=== PATIENT | female | born 1955 | race Caucasian/White ===

== ENCOUNTER → 2018-09-07 | Outpatient (CLI) | payer OTHER | LOC: RAD 11:23 | DX: I51.7 Cardiomegaly (principal); M79.89 Other specified soft tissue disorders; I70.0 Atherosclerosis of aorta; R60.9 Edema, unspecified ==

== ENCOUNTER → 2018-09-18 | Outpatient (CLI) | payer OTHER ==
[~2018-09-18] VITALS: Ht 167.6 cm; Wt 106.6 kg
[~2018-09-18] MED LIST: AMLODIPINE BESY10 MG PO; AMOX TR-K CLV1 EAC3 PO; LISINOPRIL-HCT1 EAC1 PO; ZANTAC 150MG T150 MG PO
--- NOTE | 2018-09-19 16:06 | PATH ---
[facility] [address] PATHOLOGY RPT PROCEDURE Name: NANDA BLACK Room #: REG [facility] MDalia.#: [id number] ������������������ Admission: 09/18/18 ������������������ Date of : 55 Discharge: Report #: [id number] Path Case #: [id number] [facility] Accession Number: [id number] . 01 Material submitted: . POLYP AT DESCENDING COLON . 01 Clinical history: . Screening Colon polyp . 02 Diagnosis: Polyp, at descending colon, endoscopic biopsy: - Tubular adenoma. - Negative for high-grade dysplasia. (IUV:kurt; 09/19/2018) QMS/09/19/2018 . 02 Electronically signed: . Abigail Alfonso MD, Pathologist NPI- [id number] . 01 Gross description: . The specimen is received in formalin, labeled "Abby, Nanda, polyp at descending colon" and consists of a fragment of pink-portillo tissue measuring 0.5 x 0.4 x 0.2 cm. It is inked, bisected, and entirely submitted in A1. (SDY; 09/18/2018) SYU/SYU . 02 Pathologist provided ICD-10: D12.4 . 02 CPT . 242510 Specimen Comment: A courtesy copy of this report has been sent to Specimen Comment: [phone], . Specimen Comment: Report sent to / DR JAQUEZ Performed at: [address], [place] [id number] MD Ramsey Chandler MD Phone: [phone] Performed at: [address] [id number] MD Abigail Alfonso MD Phone: [phone]
== END | disposition home or self-care (01) ==
LOC: GI 09:30
DX: Z12.11 Encounter for screening for malignant neoplasm of colon (principal); D12.4 Benign neoplasm of descending colon; K57.30 Diverticulosis of large intestine without perforation or abscess without bleeding; K64.8 Other hemorrhoids; I10 Essential (primary) hypertension; E66.09 Other obesity due to excess calories; Z87.891 Personal history of nicotine dependence; Z85.828 Personal history of other malignant neoplasm of skin; Z79.899 Other long term (current) drug therapy; Z88.6 Allergy status to analgesic agent; Z90.49 Acquired absence of other specified parts of digestive tract; Z90.710 Acquired absence of both cervix and uterus; Z98.890 Other specified postprocedural states; Z68.37 Body mass index [BMI] 37.0-37.9, adult
CPT/HCPCS: 62110; 62900

== ENCOUNTER → 2018-09-22 | Outpatient (CLI) | payer OTHER | LOC: RAD 13:56 | DX: J98.4 Other disorders of lung (principal) ==

== ENCOUNTER 2018-10-15 14:43 | Inpatient (IN) | payer OTHER ==
[2018-10-15] VITALS (7 sets, daily range): BP systolic 97–117; BP diastolic 49–78
[~2018-10-15] VITALS: Ht 167.6 cm; Wt 100.7 kg
[2018-10-15 15:21] LABS: HEMATOCRIT 31.8 % (37.0-47.0); HEMOGLOBIN 10.4 gm/dL (12.0-15.0); MCH 27.1 pg (26.0-34.0); MCHC 32.8 g/dL (28.0-37.0); MCV 82.8 fL (80.0-100.0); RBC 3.84 mil/uL (4.20-5.00); RDW 19.2 % (10.5-14.5); WBC 11.2 thou/uL (4.0-11.0)
[2018-10-15 15:30] LABS: CALCIUM 9.3 mg/dL (8.5-10.1); CREATININE 1.8 mg/dL (0.6-1.0); POTASSIUM 4.9 mmol/L (3.5-5.1)
[2018-10-15 15:40] LABS: ALBUMIN 3.6 g/dL (3.4-5.0); TOTAL BILIRUBIN 0.3 mg/dL (<0.1-1.0); TOTAL PROTEIN 6.2 g/dL (6.4-8.2); TROPONIN-I 0.52 ng/mL (<0.06)
[2018-10-15] MEDS ORDERED: UNICOMPLEX M TA1 TA1 PO (16:08)
[2018-10-15 16:40] LABS: APTT 31.2 Seconds (24.5-32.8); INR 1.1; PROTIME 11.4 Seconds (9.3-11.4)
[2018-10-15] MEDS ORDERED: NORVASC10 MG PO (17:46)
--- NOTE | 2018-10-15 18:31 | NUR ---
ADMITTED PATIENT TO ROOM AT THIS TIME. SHE IS ALERT ORIENTED X4. SHE IS HERE FOR CHEST PAIN. SHE DENIES PAIN AT THIS TIME. STATES PAIN INCREASES WHEN SHE WALKS OR DOES ANY ACTIVITY. WILL SPACE OUT ACTIVITY. HERE WITH HERE. ORIENTED TO ROOM, ROUTINE AND AND MEAL TIMES.
[2018-10-16] VITALS: BP 120/71
[2018-10-16 00:46] VITALS: BP 98/61
[2018-10-16 02:53] LABS: ALBUMIN 3.2 g/dL (3.4-5.0); CALCIUM 8.7 mg/dL (8.5-10.1); CREATININE 1.3 mg/dL (0.6-1.0); PHOSPHORUS 3.4 mg/dL (2.5-4.9); POTASSIUM 4.3 mmol/L (3.5-5.1)
[2018-10-16 03:00] LABS: TROPONIN-I 0.68 ng/mL (<0.06)
--- NOTE | 2018-10-16 04:26 | NUR ---
ASSUMED CARE 1899. VSS. ASSESSMENT CHARTED. AT BEDSIDE, A&OX4. X1 COMMOD SOA WHEN WALKING STEADY ON FEET, RA O2 STATS WNL. GTTS HEPARIN PER EMAR PROTOCOL FOLLOWED SEE FLOW SHEET. PT C/O L CP CONTROLED WITH NITRO SL PER EMAR SEE DOCUMENTATION, SBP DROPS TO 90'S AYSYMPTOMATIC MAP WNL. STEEL BUFFER NOTIFIED TO UPDATE ON PT, ORDERS GIVEN. PLAN FOR APTT REDRAW AT 0930. CARDIO AWARE SEE NOTES. NPO. WILL CONTINUE TO MONITOR AND WITH POC.
[2018-10-16 04:55] VITALS: BP 100/51
--- NOTE | 2018-10-16 08:55 | EKG ---
[place] [address] [address] [facility] [place] [address] ELECTROCARDIOGRAM REPORT Name: NANDA BLACK Room #: 211-P ADM IN M.R.#: [id number] ������������������ Admission: 10/15/18 ������������������ Attend Phys: Miguel Ojeda Discharge: ������������������ Date of : 55 Report #: [id number] ����������������������������������������������������������������� [id number] THIS REPORT FOR: //name// [facility] ED Test Date: 2018-10-15 Test Time: 14:45:16 Pat Name: NANDA BLACK Department: Room: 211 Gender: F Operator [employer]: BRADY : 1955 Requested By: Jeanne Díaz Order Number: [id number] MD: Blu Bagley Measurements Intervals [place] Rate: 86 P: 116 ND: 225 QRS: 11 QRSD: 135 T: 186 QT: 405 QTc: 485 Interpretive Statements Sinus rhythm Prolonged ND interval Left bundle branch block No previous ECG available for comparison Electronically Signed On 10-16-2018 8:55:05 CDT by Blu Bagley [email or web address] ��������������������������������������������� <ELECTRONICALLY SIGNED> ���������������������������������������� By: Blu Bagley MD, [facility] ��������������������������������������������� 10/16/18 0855 1445 1445 Blu Bagley MD, [facility]ACC /EPI
[2018-10-16 09:47] LABS: CHOLESTEROL 195 mg/dL (<200); HDL CHOLESTEROL 25 mg/dL (>40); LDL CHOLESTEROL 140 mg/dL (<100); TC:HDL 7.8 Ratio (Not establshd); TRIGLYCERIDE 150 mg/dL (<150); TROPONIN-I 0.43 ng/mL (<0.06); VLDL 30 mg/dL (<40)
[2018-10-16 12:24] VITALS: BP 111/56
--- NOTE | 2018-10-16 12:38 | 2DMMODE ---
[facility] [address] [place] [address] 2 D/M-MODE ECHOCARDIOGRAM Name: NANDA BLACK Room #: 211-P ADM IN M.R.#: [id number] ������������� Admission: 10/15/18 ������������� Attend Phys: Miguel Tomlinson Discharge: ��� ������������� ��� Date of : 55 Date of Service: 10/16/18 1237 �� Report #: [id number] �������� ��������������������������������������������[id number] THIS REPORT FOR: //name// APPROVED REPORT Study performed: 10/16/2018 11:46:45 EXAM: Comprehensive 2D, Doppler, and color-flow Echocardiogram Patient Location: Bedside Room #: 211 Status: routine BSA: 2.09 HR: 85 bpm BP: 119/72 mmHg Other Information Study Quality: Adequate Indications CAD Elevated Troponin Chest Pain Hypertension/HDD SOA 2D Dimensions RVDd: 37.42 mm IVSd: 15.73 (7-11mm) LVOT Diam: 20.21 (18-24mm) LVDd: 44.78 mm PWd: 16.48 (7-11mm) Ascending Ao: 28.08 (22-36mm) LVDs: 30.97 (25-40mm) Aortic Root: 27.46 mm IVC: 23.00 mm Volumes Left Atrial Volume (Systole) Single Plane 4CH: 64.31 mL Single Plane 2CH: 48.21 mL LA ESV Index: 29.00 mL/m2 Aortic Valve AoV Peak Luis.: 1.73 m/s AO Peak Gr.: 12.04 mmHg LVOT Max P.93 mmHg LVOT Max V: 1.11 m/s VICKI Vmax: 2.05 cm2 Mitral Valve [facility] [address] [place] [address] 2 D/M-MODE ECHOCARDIOGRAM Name: NANDA BLACK Room #: 211-P [facility] IN .R.#: [id number] ������������� Admission: 10/15/18 ������������� Attend Phys: Miguel Tomlinson Discharge: ��� ������������� ��� Date of : 55 Date of Service: 10/16/18 1237 �� Report #: [id number] �������� ��������������������������������������������[id number] E/A Ratio: 0.9 MV Decel. Time: 170.82 ms MV E Max Luis.: 1.04 m/s MV A Luis.: 1.22 m/s MV PHT: 49.54 ms IVRT: 103.81 ms Pulmonary Valve PV Peak Luis.: 1.32 m/s PV Peak Gr.: 7.02 mmHg Pulmonary Vein P Vein S: 0.47 m/s P Vein A: 0.33 m/s P Vein D: 0.24 m/s P Vein A Dur.: 79.6 msec P Vein S/D Ratio: 1.96 Tricuspid Valve TR Peak Luis.: 2.71 m/s RAP Estimate: 15.00 mmHg TR Peak Gr.: 29.35 mmHg PA Pressure: 44.00 mmHg Left Ventricle The left ventricle is normal size. Moderate concentric left ventricular hypertrophy. The left ventricular systolic function is normal. The left ventricular ejection fraction is within the normal range. LVEF is 55-60%. Mild diastolic dysfunction is present (impaired relaxation pattern). Right Ventricle The right ventricle is normal size. The right ventricular systolic function is normal. Atria The left atrium size is normal. Right atrium is mildly dilated. Aortic Valve The aortic valve is normal in structure. No aortic regurgitation is present. There is no aortic valvular stenosis. Mitral Valve Mild mitral annular calcification. Trace to mild mitral regurgitation. No evidence of mitral valve stenosis. Tricuspid Valve The tricuspid valve is normal in structure. Moderate tricuspid regurgitation. PAP is estimated at 44 mmHg. [facility] [address] [place] [address] 2 D/M-MODE ECHOCARDIOGRAM Name: NANDA BLACK Room #: [address] [place] [address] IN .R.#: [id number] ������������� Admission: 10/15/18 ������������� Attend Phys: Miguel Tomlinson Discharge: ��� ������������� ��� Date of : 55 Date of Service: 10/16/18 1237 �� Report #: [id number] �������� ��������������������������������������������[id number] Pulmonic Valve The pulmonary valve is normal in structure. There is no pulmonic valvular regurgitation. Great Vessels The aortic root is normal in size. IVC is mildly dilated and collapses <50% with inspiration. Pericardium Trace pericardial effusion. <Conclusion> The left ventricle is normal size. LVEF is 55-60%. The aortic valve is normal in structure. Mild mitral annular calcification. Trace to mild mitral regurgitation. The tricuspid valve is normal in structure. Moderate tricuspid regurgitation. PAP is estimated at 44 mmHg. The pulmonary valve is normal in structure. Trace pericardial effusion. ��������������������������������������������� <ELECTRONICALLY SIGNED> ���������������������������������������� By: Kush Cuevas MD ��������������������������������������������� 10/16/18 1237 1237 1237 Kush Cuevas MD /INF
[2018-10-16 16:00] VITALS: BP 113/61
[2018-10-16 19:55] VITALS: BP 108/57
[2018-10-17 00:40] VITALS: BP 93/54
[2018-10-17 02:05] VITALS: BP 93/54
--- NOTE | 2018-10-17 03:41 | NUR ---
]ASSUMED CARE 1899. VSS. ASSESSMENT CHARTED. PT CP CONTROLED WITH NITRO OINTMENT PER EMAR. DENIES SOA, N/V, DIZZINESS. SLEEPING WELL THROUGHOUT NIGHT, AT BED SIDE. X1 ASSIST TO COMMOD. STOOLS FIRMING UP. SAMPLE SENT PENDING, MAINTAINING ISO. HEPARIN AND FLUIDS PER EMAR, PROTOCOL FOLLOWED. PLAN FOR CATH TODAY. WILL CONTINUE TO MONITOR AND WITH POC.
[2018-10-17 05:30] VITALS: BP 93/51
[2018-10-17 08:00] VITALS: BP 106/71
--- NOTE | 2018-10-17 08:09 | EKG ---
[place] [address] [facility] [place] [address] ELECTROCARDIOGRAM REPORT Name: NANDA BLACK Room #: 211-P ADM IN M.R.#: [id number] ������������������ Admission: 10/15/18 ������������������ Attend Phys: Miguel Ojeda Discharge: ������������������ Date of : 55 Report #: [id number] ����������������������������������������������������������������� [id number] THIS REPORT FOR: //name// [facility] Test Date: 2018-10-16 Test Time: 09:19:25 Pat Name: NANDA BLACK Department: Room: 211 P Gender: F Financial Administrative Assistant: Justin GALVAN : 1955 Requested By: Jennifer Brasher Order Number: [id number] MD: Blu Bagley Measurements Intervals [place] Rate: 77 P: 57 SD: 230 QRS: 19 QRSD: 152 T: 202 QT: 425 QTc: 482 Interpretive Statements Sinus rhythm Prolonged SD interval Left bundle branch block Compared to ECG 10/15/2018 14:45:16 No significant changes Electronically Signed On 10-17-2018 8:08:54 CDT by Blu Bagley [email or web address] ��������������������������������������������� <ELECTRONICALLY SIGNED> ���������������������������������������� By: Blu Bagley MD, [facility] ��������������������������������������������� 05/12/30 807 8 8 Blu Bagley MD, [facility] /EPI
--- NOTE | 2018-10-17 17:15 | NUR ---
PATIENT TAKEN TO TRANSITION SPECIALIST, NO INTERVENTION PERFORMED. POST PROCEDURE FLOW SHEET COMPLETED AND SCANNED INTO CHART. VSS, NO COMPLAINTS OF PAIN, HEPARIN DRIP DC'D. WILL CONTINUE TO MONITOR.
[2018-10-17 19:58] VITALS: BP 117/58
[2018-10-17 23:37] VITALS: BP 117/58
[2018-10-18 01:38] VITALS: BP 97/55
--- NOTE | 2018-10-18 03:29 | NUR ---
ASSUMED CARE 1899. VSS. ASSESSMENT CHARTED. PT DENIES CP, N/V, DIZZINESS. SOA WITH EXCERTION. NEW MEDS PER EMAR, PT AND EDUCATED. R GROIN SITE C,D,I NO HEMATOMA. PT SLEEPING WELL. PT HOPING TO D/C THIS AM. WILL CONTINUE TO MONITOR AND WITH POC.
[2018-10-18 04:50] VITALS: BP 105/60
[2018-10-18 07:40] VITALS: BP 114/67
[2018-10-18 11:25] VITALS: BP 109/56
--- NOTE | 2018-10-18 14:52 | NUR ---
VSS NSR WITH 1% AV BLOCK. PT STARTED OFF SHIFT THIS AM C/O CHEST TIGHTNESS, MIDSTERNAL. PT GIVEN IMDUR AT THAT TIME SCHEDULED. PT RATING PAIN A 3-4, ONE HOUR LATER TIGHTNESS IN CHEST LESS BUT STILL PRESENT. DR MCLEAN AWARE AND GIVEN XTRA DOSE OF IMDUR. CHEST TIGHTNESS HAS EVENTUALLY RESOLVED.LUNGS DIMINISHED AND CLEAR, RA SAT IS 94%, PT DOES GET ARROYO WITH AMBULATION TO BRP WILL CONTINUE TO MONITER AND CARE FOR PT PER PLAN OF CARE
[2018-10-18 16:09] VITALS: BP 128/62
[2018-10-18 19:58] VITALS: BP 99/45
[2018-10-19 07:43] VITALS: BP 111/62
--- NOTE | 2018-10-19 07:51 | NUR ---
ASSESSMENTS CHARTED. TIRED ON EXERSION. HELPING PATIENT TO THE BATHROOM AND JOAN. PATIENT BEING TREATED MEDICALLY FOR MODERATE DIFFUSE ARTERIES AROUND HEART. PATIENT DID NOT C/O CHEST PAIN DURING SHIFT. FALL PRECAUTIONS IN PLACE.
[2018-10-19] MEDS ORDERED: TOPROL XL25 MG PO (08:44)
[2018-10-19] MEDS ORDERED: ATORVASTATIN CA40 MG PO (08:44)
[2018-10-19] MEDS ORDERED: IMDUR 60 MG TAB60 M1 PO (08:44)
[2018-10-19] MEDS ORDERED: ASPIR 8181 MG PO (08:44)
[2018-10-19] MEDS ORDERED: NITROGLYCERIN0.4 MG SUBLING (08:46)
[2018-10-19 10:35] VITALS: BP 104/62
[2018-10-19 12:02] VITALS: BP 104/62
--- NOTE | 2018-10-19 12:34 | NUR ---
ASSUMED CARE AT SHIFT CHANGE, ALERT AND ORIENTED X4. SR 1AVB/BBB, VSS. PATIENT WALKED THE HALWAYS TACHY AND MD NOTIFIED. MEDICATION AND DISCHARGE INSTRUCTIONS GIVEN AND SHE VERBALIZED UNDERSTANDING.
--- NOTE | 2018-10-23 10:00 | CATHLAB ---
[facility] [address] [place] [address] INVASIVE PROCEDURE REPORT Name: NANDA BLACK Room #: 211-P [facility] IN ..#: [id number] ������������� Admission: 10/15/18 ������������� Attend Phys: Miguel Tomlinson Discharge: ��� 10/19/18 ������������� ��� Date of : 55 Date of Service: 10/23/18 1000 �� Report #: [id number] �������� ��������������������������������������������[id number] THIS REPORT FOR: //name// APPROVED REPORT Study performed: 10/17/2018 11:36:50 Patient Details The patient is a 63 year-old female Event Personnel Kush Cuevas Stone Product Fabricator, Artem Funez RN, Mary Wong RN, Patricia Chew RTR, Nicolas Hawkins Valisa Monitor Procedures Performed Left Heart Cath w/or w/o Coronaries [id number] [facility] FFR [id number] FFR supervision of conscious sedation Indication Chest pain Procedure Narrative The Right Groin^ was infiltrated with 1% Lidocaine subcutaneous anesthesia. A PINNACLE 4FR Sheath #[id number] sheath was inserted into the RFA^. Coronary angiography was performed using coronary diagnostic catheters. The right coronary system was accessed and visualized with a JR4 catheter. The left coronary system was accessed and visualized with a J6F JL4 catheter. The left ventricle was accessed and visualized with a 4F PIGTAIL catheter. Left ventricular/Aortic Valve gradient assessed via catheter pullback. Closure device was deployed with a Fr MYNXGRIP 6/7F #[id number]. The patient tolerated the procedure well and there were no complications associated with the procedure. There was no hematoma. Intraoperative Conscious Sedation Sedation start time: 1208 Case end Time: 1258 Versed 2 mg Fluoro Time: 4.29 minutes Dose: DAP 6456.00 cGycm2 928 mGy Contrast Type and Amount: Omnipaque 95 ml Coronary Angiography [facility] [employer] [address] INVASIVE PROCEDURE REPORT Name: NANDA BLACK Room #: 211-P [facility] IN M.R.#: [id number] ������������� Admission: 10/15/18 ������������� Attend Phys: Miguel Tomlinson Discharge: ��� 10/19/18 ������������� ��� Date of : 55 Date of Service: 10/23/18 1000 �� Report #: [id number] �������� ��������������������������������������������[id number] The patient's coronary anatomy is right dominant. Diagnostic Cath Left Main Left main is of normal origin large caliber bifurcates left anterior descending left circumflex free of high-grade disease LAD Caliber type II vessel which courses in the anterior interventricular sulcus. He gives rise to a large diagonal branch which has a mild 30% proximal lesion. In the proximal mid LAD there is an area of irregularity that does not appear to be flow-limiting. In continues in the anterior interventricular sulcus of the middle third with her some narrowing seen ill projections but not in other projections. This appears to be under 60%. There is some questionable haziness in the proximal segment the mid LAD. Otherwise no high-grade lesions are noted Diagonal 1 Moderate caliber vessel coursing along the anterolateral wall free of high-grade disease Circumflex Want to large caliber vessel courses in the AV groove giving rise to an early small marginal branch. This vessel is without high-grade disease. The circumflex proper then continues posteriorly giving rise to a moderate to large bifurcating marginal branch luminal irregularities in its proximal course. OM1 small insignificant caliber vessel without disease OM2 At to large caliber bifurcating vessel which has luminal irregularities in its course but no high-grade lesions present Right Coronary October vessel of normal origin. Proximally there is a region of stenosis which appears to be no more than 50%. Does not appear to be flow-limiting. The vessel continues on to the crux of the heart arrested posterior descending artery and the posterior lateral branch which appears to be small. Artery to the AV node is also noted R PDA Small to moderate caliber vessel free of significant high-grade lesions IVUS Fractional Flow [place] was performed on the proximal and mid LAD vessel. A can [facility] 4 curve 5 Mexican Guide Catheter was used to engage the left coronary ostium. A FFR wire was used. IVUS Findings 1. Baseline fractional flow was normal with reduction to 0.91 at maximal reduction at greater than 4 minutes of adenosine infusion as well as prior non-adenosine FFR testing Hemodynamics The aortic pressure is 117/64 mmHg with a mean of 86 mmHg. The left [facility] [address] [place] [address] INVASIVE PROCEDURE REPORT Name: NANDA BLACK Room #: 211-P [facility] IN M.R.#: [id number] ������������� Admission: 10/15/18 ������������� Attend Phys: Miguel Tomlinson Discharge: ��� 10/19/18 ������������� ��� Date of : 55 Date of Service: 10/23/18 [facility] �� Report #: [id number] �������� ��������������������������������������������[id number] ventricular pressure is 105/16 mmHg with a mean of mmHg. The left ventricular end diastolic pressure is 25 mmHg. PCI Technique Lesion A LAUNCHER 6FR JL4 #[id number] Guide Catheter was used to engage the ostium. A FFR WIRE Interventional Guidewire was used to cross the lesion. BALLOON DILATION FFR Performed w/wo ADENOSINE to 0.91 PCI Technique Lesion The lesion stenosis prior to intervention was proximal and mid LAD% with OLEKSANDR can slough 4 curve 5 Mexican flow. A left coronary Guide Catheter was used to engage the ostium. A FFR wire Interventional Guidewire was used to cross the lesion. BALLOON DILATION A Balloon catheter 1. Baseline fractional flow was normal with reduction to 0.91 at maximal reduction at greater than 4 minutes of adenosine infusion as well as prior non-adenosine FFR testing was inserted and inflated up to brittny for seconds. Conclusion 1. Coronary artery disease moderate two-vessel 2. Normal hemodynamics 3. Fractional flow reserve across the proximal and mid LAD was negative for significant decrease flow Recommendations Cardiac Risk Reduction Program Medical Therapy ��������������������������������������������� <ELECTRONICALLY SIGNED> ���������������������������������������� By: Kush Cuevas MD ��������������������������������������������� 10/23/18 1000 1000 1000 Kush Cuevas MD /INF
== END 2018-10-19 14:30 | disposition home or self-care (01) | DRG 281 ==
LOC: ER 14:43 → EROBS 16:27 → 2N 16:27 → ENTRNSPT 10-19 12:52 → 2N 10-19 13:00 → ENTRNSPT 10-19 14:21 → EDTRNSPTSTS 10-19 14:24 → 2N 10-19 14:30
PROVIDERS: Nurse Practitioner; Physician Assistant; ADMIT Hospitalist
PROC: 4A033BC Measurement of Arterial Pressure, Coronary, Percutaneous Approach (ICD-10-PCS; principal; 2018-10-17)
PROC: B2111ZZ Fluoroscopy of Multiple Coronary Arteries using Low Osmolar Contrast (ICD-10-PCS; principal; 2018-10-17)
PROC: B2151ZZ Fluoroscopy of Left Heart using Low Osmolar Contrast (ICD-10-PCS; principal; 2018-10-17)
PROC: 4A023N7 Measurement of Cardiac Sampling and Pressure, Left Heart, Percutaneous Approach (ICD-10-PCS; principal; 2018-10-17)
DX: I21.4 Non-ST elevation (NSTEMI) myocardial infarction (principal); N17.9 Acute kidney failure, unspecified; I10 Essential (primary) hypertension; K21.9 Gastro-esophageal reflux disease without esophagitis; I25.10 Atherosclerotic heart disease of native coronary artery without angina pectoris; E78.5 Hyperlipidemia, unspecified; Z90.49 Acquired absence of other specified parts of digestive tract; Z90.710 Acquired absence of both cervix and uterus; Z87.01 Personal history of pneumonia (recurrent); Z88.6 Allergy status to analgesic agent; Z79.899 Other long term (current) drug therapy; Z85.828 Personal history of other malignant neoplasm of skin
CPT/HCPCS: 10081

== ENCOUNTER 2018-10-21 17:02 | Inpatient (IN) | payer OTHER ==
[~2018-10-21] VITALS: Ht 167.6 cm; Wt 103.0 kg
[~2018-10-21 17:02] MED LIST changes: +ASPIR 8181 MG PO; +ATORVASTATIN CA40 MG PO; +IMDUR 60 MG TAB60 M1 PO; +NITROGLYCERIN0.4 MG SUBLING; +NORVASC10 MG PO; +TOPROL XL25 MG PO; +UNICOMPLEX M TA1 TA1 PO
[2018-10-21 17:03] VITALS: BP 150/85
[2018-10-21 17:13] LABS: HEMATOCRIT 33.3 % (37.0-47.0); HEMOGLOBIN 10.7 gm/dL (12.0-15.0); MCH 26.7 pg (26.0-34.0); MCHC 32.1 g/dL (28.0-37.0); MCV 83.3 fL (80.0-100.0); PLATELET COUNT 365 thou/uL (150-400); RBC 3.99 mil/uL (4.20-5.00); RDW 18.6 % (10.5-14.5); WBC 11.8 thou/uL (4.0-11.0)
[2018-10-21 17:20] LABS: POTASSIUM 4.2 mmol/L (3.5-5.1)
[2018-10-21 17:30] LABS: TROPONIN-I 0.53 ng/mL (<0.06)
[2018-10-21 17:36] LABS: ANISOCYTOSIS 1+; ATYPICAL LYMPHS 1 %; METAMYELOCYTES 1 %
[2018-10-21 18:36] VITALS: BP 152/93
[2018-10-21 18:42] VITALS: BP 144/91
[2018-10-21 18:52] LABS: INR 1.1; PROTIME 11.9 Seconds (9.3-11.4)
[2018-10-21 21:00] VITALS: BP 119/81
[2018-10-22] VITALS (14 sets, daily range): BP systolic 95–129; BP diastolic 50–75
[2018-10-22 04:20] LABS: ALBUMIN 2.8 g/dL (3.4-5.0); CALCIUM 8.5 mg/dL (8.5-10.1); CREATININE 0.7 mg/dL (0.6-1.0); POTASSIUM 3.9 mmol/L (3.5-5.1); TOTAL BILIRUBIN 0.3 mg/dL (<0.1-1.0); TOTAL PROTEIN 5.3 g/dL (6.4-8.2)
[2018-10-22 04:22] LABS: TROPONIN-I 1.09 ng/mL (<0.06)
[2018-10-22 04:45] LABS: HEMOGLOBIN 10.4 gm/dL (12.0-15.0); MCH 27.1 pg (26.0-34.0); MCHC 32.7 g/dL (28.0-37.0); RBC 3.85 mil/uL (4.20-5.00); RDW 18.6 % (10.5-14.5); WBC 10.9 thou/uL (4.0-11.0)
--- NOTE | 2018-10-22 07:00 | NUR ---
ARRIVED IN CCU FROM ER AT 2100 LAST NIGHT. PT INITIALLY DENIED CHEST PAIN, BUT LATER C/O MINOR CHEST PAIN. PT HAS BEEN NPO AFTER MN TO BE PREPARED IN THE CASE OF AN ANGIOGRAPHY TODAY. AT BEDSIDE. WILL CONTINUE TO MONITOR.
--- NOTE | 2018-10-22 10:29 | EKG ---
[place] [address] [facility] [place] [address] ELECTROCARDIOGRAM REPORT Name: NANDA BLACK Room #: 201-P [facility] IN M.R.#: [id number] ������������������ Admission: 10/21/18 ������������������ Attend Phys: Esteban Vicente MD Discharge: ������������������ Date of : 55 Report #: [id number] ����������������������������������������������������������������� [id number] THIS REPORT FOR: //name// [facility] ED Test Date: 2018-10-21 Test Time: 17:02:39 Pat Name: NANDA BLACK Department: Room: 201 Gender: F Contact Agent: : 1955 Requested By: Sachin Matos Order Number: [id number] MD: Blu Bagley Measurements Intervals [place] Rate: 98 P: 68 VT: 209 QRS: 27 QRSD: 143 T: 206 QT: 400 QTc: 511 Interpretive Statements Sinus rhythm Atrial premature complex Borderline prolonged VT interval Left bundle branch block Compared to ECG 10/16/2018 09:19:25 Atrial premature complex(es) now present Electronically Signed On 10-22-2018 10:29:17 CDT by Blu Bagley [email or web address] ��������������������������������������������� <ELECTRONICALLY SIGNED> ���������������������������������������� By: Blu Bagley MD, [facility] ��������������������������������������������� 10/22/18 1029 170 170 Blu Bagley MD, [facility] /EPI
--- NOTE | 2018-10-22 10:35 | EKG ---
[address] [address] ELECTROCARDIOGRAM REPORT Name: NANDA BLACK Room #: 201-P ADM IN M.R.#: [id number] ������������������ Admission: 10/21/18 ������������������ Attend Phys: Esteban Vicente MD Discharge: ������������������ Date of : 55 Report #: [id number] ����������������������������������������������������������������� [id number] THIS REPORT FOR: //name// [facility] Test Date: 2018-10-22 Test Time: 07:12:26 Pat Name: NANDA BLACK Department: Room: 201 P Gender: F Senior Principal Software Engineer: Nereyda GAMBLE : 1955 Requested By: Blu Bagley Order Number: [id number] MD: Blu Bagley Measurements Intervals [place] Rate: 77 P: 64 MT: 251 QRS: 34 QRSD: 151 T: 212 QT: 431 QTc: 488 Interpretive Statements Sinus rhythm Prolonged MT interval Left bundle branch block Baseline wander in lead(s) V1 Compared to ECG 10/16/2018 09:19:25 No significant changes Electronically Signed On 10-22-2018 10:35:00 CDT by Blu Bagley [email or web address] ��������������������������������������������� <ELECTRONICALLY SIGNED> ���������������������������������������� By: Blu Bagley MD, [facility] ��������������������������������������������� 10/22/18 1035 1 1 Blu Bagley MD, [facility] /EPI
--- NOTE | 2018-10-22 12:35 | CATHLAB ---
[facility] [address] [place] [address] INVASIVE PROCEDURE REPORT Name: NANDA BLACK Room #: 201-P [facility] IN [facility].#: [id number] ������������� Admission: 10/21/18 ������������� Attend Phys: Esteban Vicente MD Discharge: ��� ������������� ��� Date of : 55 Date of Service: 10/22/18 1234 �� Report #: [id number] �������� ��������������������������������������������[id number] THIS REPORT FOR: //name// APPROVED REPORT Study performed: 10/22/2018 10:25:43 Patient Details Patient Status: In-Patient Room #: The patient is a 63 year-old female Event Personnel Blu Bagley Search Engineer, Lary Sadler, Belgica Cordero RN RN, Patricia Chew RTR, ROD FILLER Scrub Procedures Performed Art Access - R femoral artery* Left Heart Cath w/or w/o Coronaries [id number] [facility] [address] Initial Mod Sed Same Phys/QHP Gr5y 331441 88577 Mod Sed Same Phys/QHP Ea 402853 Hemostasis w/ Mynx FFR 2930789 FFR ALPHONSO Place w/wo Plasty Single RCA 056748 Indication Chest pain Procedure Narrative The Right Groin^ was infiltrated with 1% Lidocaine subcutaneous anesthesia. A PINNACLE 6FR Sheath #[id number] sheath was inserted into the RFA^. Coronary angiography was performed using coronary diagnostic catheters. The right coronary system was accessed and visualized with a JR4 catheter. The left coronary system was accessed and visualized with a JL4 catheter. The left ventricle was accessed and visualized with a ANGLE PIG catheter. Left ventricular/Aortic Valve gradient assessed . Left ventriculogram was performed in RODRIGUES projection. Closure device was deployed with a Fr MYNXGRIP 6/7F #[id number]. The patient tolerated the procedure well and there were no complications associated with the procedure. There was no hematoma. Intraoperative Conscious Sedation Sedation start time: 1100 Case end Time: 1201 Fentanyl 50 mcg Versed 1 mg Fluoro Time: 6.36 minutes Dose: DAP 58191.20 cGycm2 1535 mGy [facility] [address] [place] [address] INVASIVE PROCEDURE REPORT Name: NANDA BLACK Room #: 201-P [facility] [id number] ������������� Admission: 10/21/18 ������������� Attend Phys: Esteban Vicente MD Discharge: ��� ������������� ��� Date of : 55 Date of Service: 10/22/18 1234 �� Report #: [id number] �������� ��������������������������������������������[id number] Contrast Type and Amount: Omnipaque 205 ml Coronary Angiography The patient's coronary anatomy is right dominant. Diagnostic Cath Left Main Normal left main LAD Mild 20% to at most 30% plaquing the proximal portion of the LAD Diagonal 1 High rising first diagonal branch, angiographically normal Circumflex Large, nondominant circumflex. This vessel was comprised predominantly of a large distally arising, bifurcating marginal branch Right Coronary Proximal 75-80% right coronary stenosis, dampening on catheter engagement. FFR 0.91 without adenosine R PDA Large posterior descending branch, angiographically normal RPLV Moderate size posterolateral branch, angiographically normal Left Ventriculography The left ventricle is normal in size with normal contractility. The left ventricular ejection fraction is estimated to be 60-65%. Left ventricular wall motion abnormalities are not present. There is no mitral insufficiency. Hemodynamics The aortic pressure is 119/60 mmHg with a mean of 82 mmHg. The left ventricular pressure is 93/18 mmHg with a mean of mmHg. The left ventricular end diastolic pressure is 34 mmHg. Pullback from the left ventricle to the aorta revealed no gradient across the aortic valve. PCI Technique Lesion Anticoagulation was achieved with Heparin, Integrilin. Patient was preloaded with Effient. Percutaneous coronary intervention was performed on the proximal right coronary artery. The lesion stenosis prior to intervention was 85% with OLEKSANDR 3 flow. A JR4 6F GUID Guide Catheter was used to engage the RCA ostium. A Luge Wire .014 x 182CM #[id number] Interventional Guidewire was used to cross the lesion. BALLOON DILATION A Balloon catheter Euphora RX 2.5 x 12 #[id number] was inserted and [facility] [address] [place] [address] INVASIVE PROCEDURE REPORT Name: NANDA BLACK Room #: 201-P [facility] IN .R.#: [id number] ������������� Admission: 10/21/18 ������������� Attend Phys: Esteban Vicente MD Discharge: ��� ������������� ��� Date of : 55 Date of Service: 10/22/18 1234 �� Report #: [id number] �������� ��������������������������������������������[id number] inflated up to 17.00atm for 32seconds. Repeat angiography revealed the following post-dilatation results: moderate residual stenosis. STENT DEPLOYMENT A stent XIENCE FABIANA RX 3.5 X 23 #[id number] was inserted and inflated up to 20.00atm for 29seconds. POST STENT DEPLOYMENT BALLOON DILATION A Balloon catheter TREK NC RX 3.75 X 15 #[id number] was inserted and inflated up to 16.00atm for 23seconds. Additional Inflation: 20.00atm for 20seconds. Additional Inflation: 20.00atm for 19seconds. PRIOR TO PCI A FFR PROCEEDURE WAS DONE IN THE RCA. A PRE NUMBER WAS 1.0 WITH A POST NUMBER OF .91. AFTER THAT WE PROCEEDED WITH THE INTERVENTION. Final angiography reveals 0 % stenosis with OLEKSANDR 3 flow. Conclusion 1. Normal global and regional left ventricular systolic function. Ejection fraction 65% 2. Normal left main 3. Mild 20-30% proximal LAD plaquing 4. Normal nondominant circumflex 5. Proximal right coronary stenosis successfully treated with 3.5 x 23mm Fabiana medicated stent, post-dilated to 3.9mm Recommendations Cardiac Rehabilitation Referral Aggressive Medical Therapy Medications Administered Aspirin (any) Prasugrel ��������������������������������������������� <ELECTRONICALLY SIGNED> ���������������������������������������� By: Blu Bagley MD, [facility] ��������������������������������������������� 10/22/18 1234 1234 1234 Blu Bagley MD, [facility] /INF
--- NOTE | 2018-10-22 18:43 | NUR ---
ASSUMED CARE OF PT AT SHIFT CHANGE. ASSESSMENTS CHARTED. MEDS GIVEN PER AUG. PT ALERT AND ORIENTED, VSS, NO C/O CHEST PAIN THIS SHIFT. O2 SATS WNL ON ROOM AIR. NO S/SX OF CARDIAC OR RESP DISTRESS NOTED. CONSENT OBTAINED AND SIGNED FOR HEART CATH TODAY. RIGHT GROIN SITE DRY AND INTACT WITH DRIED DRAINAGE FROM BLEEDING POST PROCEDURE. INTACT WITH NO HEMATOMA. POST CATH VITALS CHARTED, FLOW SHEET IN CHART. PT UP X1 SINCE INSTRUCTED IMMOBILIZATION ENDED. DENIES CONCERNS AT THIS TIME. WILL CONT TO MONITOR AND FOLLOW POC.
[2018-10-23 00:19] VITALS: BP 93/64
[2018-10-23 03:00] VITALS: BP 122/68
--- NOTE | 2018-10-23 03:32 | NUR ---
ASSUMED CARE 1900. VSS. ASSESSMENT CHARTED. PT DENIES CP, SOA, N/V, DIZZINESS OR ANY SIGN OF DISTRESS. ST BY TO BATHROOM PT WEAK BUT STEADY. R GROIN SITE POST PROCEDURE DRIED DRAINAGE NOTED, DRESSING INTACT NO HEMATOMA. AT BEDSIDE THROUGHT OUT NIGHT. PLAN FOR AM LABS AND EKG. WILL CONTINUE TO MONITOR AND WITH POC.
[2018-10-23 05:12] LABS: HEMATOCRIT 30.8 % (37.0-47.0); HEMOGLOBIN 9.9 gm/dL (12.0-15.0); MCH 26.6 pg (26.0-34.0); MCHC 32.2 g/dL (28.0-37.0); MCV 82.5 fL (80.0-100.0); RBC 3.73 mil/uL (4.20-5.00); RDW 18.7 % (10.5-14.5); WBC 11.5 thou/uL (4.0-11.0)
[2018-10-23 05:36] LABS: ALBUMIN 2.6 g/dL (3.4-5.0); CALCIUM 8.2 mg/dL (8.5-10.1); CREATININE 0.8 mg/dL (0.6-1.0); TOTAL BILIRUBIN 0.4 mg/dL (<0.1-1.0); TOTAL PROTEIN 4.9 g/dL (6.4-8.2)
[2018-10-23 05:39] LABS: TROPONIN-I 0.95 ng/mL (<0.06)
[2018-10-23 07:20] VITALS: BP 115/61
[2018-10-23] MEDS ORDERED: EFFIENT10 MG PO (08:05)
[2018-10-23 11:36] VITALS: BP 115/61
[2018-10-23 11:40] VITALS: BP 106/70
--- NOTE | 2018-10-23 12:06 | NUR ---
ASSUMED CARE AT 0700 AWAKE ALERT AND ORIENTED. NO COMPLIANTS OF PAIN, NAUSEA, OR DISCOMFORT. R GROIN SITE WITH SLIGHT OOZING. AT 1130 DISCHARGE ORDERS RECEIVED. PATIENT EDUCATED ON SIGNS AND SYMPTOMS OF GROIN SITE ISSUES. ACTIVITY INSTRUCTIONS DISCUSSED AND UNDERSTANDING VERBALIZED. L WRIST IV REMOVED AND PATIENT DISCHARGED HOME WITH . TRANSPORTED VIA WHEELCHAIR
[2018-10-23 12:13] VITALS: BP 115/61
--- NOTE | 2018-10-23 12:52 | HC ---
[facility] [place] [address] CONSULTATION Name: NANDA BLACK Room #: 201-P [facility] IN .R.#: [id number] Admission: 10/21/18 ������������������ Attend Phys: Esteban Vicente MD Discharge: 10/23/18 ������������������ Date of : 55 Report #: [id number] THIS REPORT FOR: //name// CC: Kush Mckenna DATE OF SERVICE: 10/21/2018 REASON FOR CONSULTATION: Chest pain. HISTORY OF PRESENT ILLNESS: The patient is a 63-year-old woman with hypertension and dyslipidemia. About a month ago, she experienced pneumonia and was placed on a course of antibiotics. Following this, she had recurrent episodes of midsternal chest tightness. She reports being able to walk about 10 feet without being very dyspneic. Her recent evaluation has been extensive and has included a ventilation perfusion scan, which was low probability and coronary angiography, the results of which I have reviewed. She does have moderate proximal LAD disease and moderate ostial right coronary artery disease. The LAD disease was not thought to be flow limiting by FFR assessment with adenosine (0.91). She was placed on beta blockade and nitrates and discharged to home. After getting home, she has had recurrent episodes of the same midsternal chest tightness with associated shortness of breath. She presented with recurrent pain to the Emergency Department and her troponin was elevated at 0.53. She has had no normal troponins this month. She denies orthopnea or paroxysmal nocturnal dyspnea. No history of palpitations, near syncope or syncope. ALLERGIES: SHE IS ALLERGIC TO MORPHINE. MEDICATIONS: Include Imdur 60 mg daily, metoprolol succinate 25 mg daily, aspirin, atorvastatin 40 mg daily and Zantac. PAST MEDICAL HISTORY: Medical records have been reviewed and include a history of hypertension, appendectomy, hysterectomy, anterior cervical diskectomy, pneumonia in 08/2018 and coronary artery disease as detailed above. SOCIAL HISTORY: She is a remote smoker. Nothing in the past 18 years. FAMILY HISTORY: Notable for premature coronary artery disease. REVIEW OF SYSTEMS: All systems negative except as that noted above. PHYSICAL EXAMINATION: GENERAL: A pleasant woman who is alert and in no distress. [address] [address] CONSULTATION Name: NANDA BLACK Room #: 201-P [facility] IN .R.#: [id number] Admission: 10/21/18 ������������������ Attend Phys: Esteban Vicente MD Discharge: 10/23/18 ������������������ Date of : 55 Report #: [id number] VITAL SIGNS: Blood pressure is 144/90, heart rate of 86 and regular. She is afebrile, 5 feet 6 inches tall, 223 pounds. HEENT: There are neither xanthelasma, subcutaneous xanthomata, oral mucosal or digital cyanosis or kyphoscoliosis present. CHEST: Clear to auscultation and percussion. CARDIAC: Regular rate and rhythm with normal S1, S2. There is a soft systolic murmur at the right sternal border. ABDOMEN: Soft and nontender. EXTREMITIES: Without cyanosis, clubbing or edema. Radial pulses are 2+. NEUROLOGIC: She is alert with a nonfocal exam. LABORATORY DATA: Sodium 139, potassium 4.2, creatinine 1.0. Cholesterol 195, LDL 140. ProBNP of 4254. White count 11.8, hemoglobin 10.7, hematocrit 33, platelet count 365. Chest x-rays, cardiomegaly. Recent echocardiogram, normal left ventricular systolic function, trace mitral regurgitation. Pulmonary artery pressure of 44, trace pericardial effusion. EKG, sinus rhythm with left bundle branch block. IMPRESSION: 1. Recurrent chest pain; non-Q-wave myocardial infarction. 2. Hypertension. 3. Dyslipidemia. 4. History of recent pneumonia. 5. Recent acute kidney injury, resolved. RECOMMENDATIONS: 1. CTA of the chest. 2. Continued use of heparin, aspirin, nitrates and beta blockade. 3. Depending on results of CT scan may need a relook coronary angiography with FFR assessment of the right coronary ostium. Symptoms are suspicious for angina. ��������������������������������������������� <ELECTRONICALLY SIGNED> ���������������������������������������� By: Blu Bagley MD, FACC ��������������������������������������������� 10/23/18 1252 1915 1540 Blu Bagley MD, FACC /nt
--- NOTE | 2018-10-23 17:57 | EKG ---
[address] [address] ELECTROCARDIOGRAM REPORT Name: NANDA BLACK Room #: [address] [place] [address] IN .R.#: [id number] ������������������ Admission: 10/21/18 ������������������ Attend Phys: Esteban Vicente MD Discharge: 10/23/18 ������������������ Date of : 55 Report #: [id number] ����������������������������������������������������������������� [id number] THIS REPORT FOR: //name// [facility] Test Date: 2018-10-22 Test Time: 12:30:53 Pat Name: NANDA BLACK Department: Room: [facility] Gender: F Home Visitor: : 1955 Requested By: Blu Bagley Order Number: [id number] MD: Tommy Lam Measurements Intervals [place] Rate: 80 P: 62 DE: 271 QRS: 27 QRSD: 147 T: 201 QT: 416 QTc: 480 Interpretive Statements Sinus rhythm Prolonged DE interval Left bundle branch block Compared to ECG 10/22/2018 07:12:26 No significant changes Electronically Signed On 10-23-2018 17:57:28 CDT by Tommy Lam [email or web address] ��������������������������������������������� <ELECTRONICALLY SIGNED> ���������������������������������������� By: Tommy Lam MD ��������������������������������������������� 10/23/18 1757 1230 1230 Tommy Lam MD /EPI
--- NOTE | 2018-10-23 18:04 | EKG ---
[address] [address] ELECTROCARDIOGRAM REPORT Name: NANDA BLACK Room #: [facility] IN .R.#: [id number] ������������������ Admission: 10/21/18 ������������������ Attend Phys: Esteban Vicente MD Discharge: 10/23/18 ������������������ Date of : 55 Report #: [id number] ����������������������������������������������������������������� [id number] THIS REPORT FOR: //name// [facility] [place] [place] Test Date: 2018-10-23 Test Time: 07:13:07 Pat Name: NANDA BLACK Department: Room: [facility] Gender: F Online Marketing Manager: : 1955 Requested By: Blu Bagley Order Number: [id number] MD: Tommy Lam Measurements Intervals [place] Rate: 79 P: 61 VT: 256 QRS: 37 QRSD: 152 T: 199 QT: 421 QTc: 483 Interpretive Statements Sinus rhythm Prolonged [place] interval Left bundle branch block Compared to ECG 10/22/2018 07:12:26 No significant changes Electronically Signed On 10-23-2018 18:03:56 CDT by Tommy Lam [email or web address] ��������������������������������������������� <ELECTRONICALLY SIGNED> ���������������������������������������� By: Tommy Lam MD ��������������������������������������������� 10/23/18 1803 2 2 Tommy Lam MD /EPI
== END 2018-10-23 12:12 | disposition home or self-care (01) | DRG 247 ==
LOC: ER 17:02 → EROBS 18:10 → 2N 18:29 → ENTRNSPT 10-23 12:05 → EDTRNSPTSTS 10-23 12:10 → 2N 10-23 12:12
PROVIDERS: Internal Medicine; Nurse Practitioner; ADMIT Hospitalist
PROC: B2151ZZ Fluoroscopy of Left Heart using Low Osmolar Contrast (ICD-10-PCS; principal; 2018-10-22)
PROC: 4A023N7 Measurement of Cardiac Sampling and Pressure, Left Heart, Percutaneous Approach (ICD-10-PCS; principal; 2018-10-22)
PROC: 027034Z Dilation of Coronary Artery, One Artery with Drug-eluting Intraluminal Device, Percutaneous Approach (ICD-10-PCS; principal; 2018-10-22)
PROC: B2111ZZ Fluoroscopy of Multiple Coronary Arteries using Low Osmolar Contrast (ICD-10-PCS; principal; 2018-10-22)
DX: I21.4 Non-ST elevation (NSTEMI) myocardial infarction (principal); I25.10 Atherosclerotic heart disease of native coronary artery without angina pectoris; I10 Essential (primary) hypertension; E78.5 Hyperlipidemia, unspecified; K21.9 Gastro-esophageal reflux disease without esophagitis; I25.2 Old myocardial infarction; Z85.828 Personal history of other malignant neoplasm of skin; Z87.01 Personal history of pneumonia (recurrent); Z90.49 Acquired absence of other specified parts of digestive tract; Z90.710 Acquired absence of both cervix and uterus; Z87.891 Personal history of nicotine dependence; Z79.82 Long term (current) use of aspirin; Z79.899 Other long term (current) drug therapy; Z88.5 Allergy status to narcotic agent; Z82.49 Family history of ischemic heart disease and other diseases of the circulatory system
CPT/HCPCS: 10081